=== PATIENT | male | born 1955 | race Caucasian/White ===

== ENCOUNTER 2018-01-01 16:22 | Observation (INO) | payer MEDICARE, OTHER ==
[~2018-01-01] VITALS: Ht 170.2 cm; Wt 108.9 kg
[2018-01-01 17:22] LABS: ALBUMIN 3.9 g/dL (3.4-5.0); ANION GAP 10 mmol/L (5-15); CALCIUM 9.5 mg/dL (8.5-10.1); CHLORIDE 102 mmol/L (98-107); CREATININE 1.67 mg/dL (0.7-1.3)
[2018-01-01] MEDS ORDERED: POTA25TA4 PO (17:37)
[2018-01-01] MEDS ORDERED: MAGN300C PO (17:37)
[2018-01-01] MEDS ORDERED: FEBU40TA PO (17:38)
[2018-01-01] MEDS ORDERED: PROP10TA PO (17:39)
[2018-01-01] MEDS ORDERED: GABA-827 PO (17:40)
[2018-01-01] MEDS ORDERED: HYDR-3240 PO (17:40)
[2018-01-01] MEDS ORDERED: MUSCLE RELAXER (17:40)
[2018-01-01] MEDS ORDERED: ASCO-90 PO (17:41)
[2018-01-01] MEDS ORDERED: CHOL100011 PO (17:41)
[2018-01-01] MEDS ORDERED: ASPI-650 PO (17:42)
[2018-01-01] MEDS: MAGNESIUM SULFATE PMX 4GM/100M 100 ML IV ONE ×2 (18:19→18:51)
[2018-01-01 18:41] LABS: BASOPHILS # (AUTO) 0.05 x10^3/uL (0-0.1); BASOPHILS % (AUTO) 1 % (0-1); EOSINOPHILS # (AUTO) 0.08 x10^3/uL (0-0.4); EOSINOPHILS % (AUTO) 1 % (1-7); LYMPHOCYTES # (AUTO) 1.35 x10^3/uL (1-3.4); LYMPHOCYTES % (AUTO) 17 % (22-44); MD NO; MEAN CORPUSCULAR HEMOGLOBIN 33.6 pg (27.5-34.5); MEAN CORPUSCULAR HGB CONC 34.1 g/dL (33.2-36.2); MEAN CORPUSCULAR VOLUME 98.5 fL (81-97); MEAN PLATELET VOLUME 7.3 fL (7.4-10.4); MONOCYTES % (AUTO) 9 % (2-9); NEUTROPHILS # (AUTO) 5.65 x10^3/uL (1.8-6.8); NEUTROPHILS % (AUTO) 72 % (42-75); PLATELET COUNT 458 x10^3/uL (130-400); RED CELL DISTRIBUTION WIDTH 13.7 % (9.4-14.8)
[2018-01-01] MEDS ORDERED: ONDANSETRON ODT 4 MG PO PRN (19:00)
[2018-01-01] MEDS ORDERED: hydrALAzine 20 MG/ML, 1ML IVPush PRN (19:00)
[2018-01-01] MEDS ORDERED: POLYETHYLENE GLYCOL 17 GM PACKET PO PRN (19:00)
[2018-01-01] MEDS ORDERED: BISACODYL 10 MG SUPP PR PRN (19:00)
[2018-01-01] MEDS ORDERED: ACETAMINOPHEN 325 MG TABLET PO PRN (19:00)
[2018-01-01] MEDS ORDERED: DOCUSATE 100 MG CAPSULE PO PRN (19:00)
[2018-01-01 19:34] VITALS: BP 150/90
[2018-01-01] MEDS: NS + 20MEQ KCL 1,000 ML IV SCH (21:57)
[2018-01-01] MEDS: HEPARIN 5,000 UNITS/ML, 1ML SQ SCH (21:57)
[2018-01-01] MEDS ORDERED: ZOLPIDEM 5MG TABLET PO PRN (22:30)
[2018-01-01] MEDS: HYDROcodone/APAP 5/325 TABLET PO PRN (22:53)
[2018-01-02 00:53] VITALS: BP 118/67
[2018-01-02] MEDS: HYDROcodone/APAP 5/325 TABLET PO PRN ×2 (03:41→10:11)
[2018-01-02] MEDS ORDERED: ALBUTEROL SULFATE 2.5 MG/3 ML ONE (03:49)
[2018-01-02] MEDS: ALBUTEROL SULFATE 2.5 MG/3 ML NPPB SCH ×3 (03:53→10:18)
[2018-01-02 04:55] VITALS: BP 150/90
[2018-01-02 05:41] LABS: ALBUMIN 3.3 g/dL (3.4-5.0); ANION GAP 8 mmol/L (5-15); CALCIUM 8.5 mg/dL (8.5-10.1); CHLORIDE 102 mmol/L (98-107)
[2018-01-02 05:44] LABS: ALANINE AMINOTRANSFERASE 22 U/L (12-78); ALKALINE PHOSPHATASE 46 U/L (45-117); BILIRUBIN,TOTAL 0.3 mg/dL (0.2-1.0); CREATININE 1.03 mg/dL (0.7-1.3); TOTAL PROTEIN 6.7 g/dL (6.4-8.2)
[2018-01-02] MEDS: NS + 20MEQ KCL 1,000 ML IV SCH ×2 (06:04→13:00)
[2018-01-02] MEDS: HEPARIN 5,000 UNITS/ML, 1ML SQ SCH ×2 (06:09→14:00)
[2018-01-02 07:04] VITALS: BP 117/78
[2018-01-02] MEDS ORDERED: FEBUXOSTAT 40 MG TABLET PO SCH (09:30)
[2018-01-02] MEDS ORDERED: ASCORBIC ACID 500 MG TABLET PO SCH (09:30)
[2018-01-02] MEDS ORDERED: PROPRANOLOL 10 MG TABLET PO SCH (09:30)
[2018-01-02] MEDS ORDERED: CHOLECALCIFEROL 1,000 UNIT TABLET PO SCH (09:30)
[2018-01-02] MEDS ORDERED: K-LYTE 25 MEQ TABLET.EFF PO SCH (09:30)
[2018-01-02] MEDS ORDERED: MAGNESIUM SULFATE PMX 2GM/50ML 50 ML IV ONE (11:00)
[2018-01-02] MEDS ORDERED: GABAPENTIN 400 MG CAPSULE PO SCH (11:00)
[2018-01-02 12:14] VITALS: BP 135/86
[2018-01-02] MEDS ORDERED: MAGN400T26 PO (12:24)
[2018-01-02] MEDS ORDERED: POTA25TA3 PO (12:29)
[2018-01-02] MEDS ORDERED: MAGNESIUM OXIDE 400 MG TABLET PO SCH (21:00)
[2018-01-03] MEDS ORDERED: ASPIRIN 325 MG TABLET EC PO SCH (09:00)
== END 2018-01-02 14:52 | disposition home or self-care (01) ==
LOC: ED 18:59 → EDIP 19:00 → 4WST 19:34 → DCLOUNGE 01-02 14:43
PROVIDERS: ADMIT Hospitalist; ATTEND Hospitalist
DX: E83.42 Hypomagnesemia (principal); J44.9 Chronic obstructive pulmonary disease, unspecified; M19.90 Unspecified osteoarthritis, unspecified site; F10.99 Alcohol use, unspecified with unspecified alcohol-induced disorder; E87.6 Hypokalemia; D64.9 Anemia, unspecified; N28.9 Disorder of kidney and ureter, unspecified; D47.3 Essential (hemorrhagic) thrombocythemia; J96.10 Chronic respiratory failure, unspecified whether with hypoxia or hypercapnia; M51.36 Other intervertebral disc degeneration, lumbar region; M10.9 Gout, unspecified; C61 Malignant neoplasm of prostate; I10 Essential (primary) hypertension; Z85.46 Personal history of malignant neoplasm of prostate; Z87.891 Personal history of nicotine dependence; Z99.81 Dependence on supplemental oxygen
CPT/HCPCS: 36415; 80048; 80053; 82040; 83735; 84100; 85025; 93005; 94640; 96365; 96366; 96368; 96372; 99285; G0378; J1644; J3475; J3480; J7613